=== PATIENT | male | born 2000 | race Caucasian/White ===

== ENCOUNTER 2023-07-01 17:06 | Emergency (ER) | payer OTHER, SELFPAY ==
[2023-07-01 17:11] VITALS: BP 129/78; PULSE 74; RESP 20; O2SAT 100
[2023-07-01 17:16] VITALS: O2SAT 100
[2023-07-01 18:41] VITALS: BP 117/74; PULSE 75; RESP 15; O2SAT 98
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
[2023-07-01 19:37] VITALS: BP 116/81; PULSE 70; RESP 17; O2SAT 100
== END 2023-07-01 19:38 | disposition home or self-care (01) ==
PROVIDERS: Emergency Provider Physician Assistant
DX: T20.56XA Corrosion of first degree of forehead and cheek, initial encounter (principal); T32.0 Corrosions involving less than 10% of body surface; X12.XXXA Contact with other hot fluids, initial encounter
CPT/HCPCS: 99283